=== PATIENT | female | born 2000 | race Two or more races ===

== ENCOUNTER 2022-03-15 13:20 | Emergency (ER) | payer OTHER ==
[~2022-03-15] VITALS: Ht 167.6 cm; Wt 99.8 kg
[2022-03-15] MEDS ORDERED: NIKKI 3 MG-0.01 EACH PO (14:13)
[2022-03-15] MEDS ORDERED: BETAMETHASONE D15 G3 TOP (19:25)
[2022-03-15] MEDS ORDERED: MEDROLPACK PO (19:25)
== END 2022-03-15 19:37 | disposition home or self-care (01) ==
LOC: ER 13:20
DX: R21 Rash and other nonspecific skin eruption (principal)